=== PATIENT | female | born 1945 | race Caucasian/White ===

== ENCOUNTER → 2022-11-06 12:56 | Outpatient (REF) | payer OTHER, MEDICAID, SELFPAY ==
--- NOTE | 2022-11-06 12:59 | CA_ITS ---
Transthoracic Echocardiogram Patient (Last, First, Middle): Gricelda Castañeda, Gender: Female Date of : 1945 Age: 77 Procedure Date: 11/06/2022 Procedure Type: Transthoracic Echocardiogram Location: OP Height: 167.64 cm Weight: 81.65 kg BSA: 1.91 m2 Heart Rate: 76 bpm BP: 108 / 60 mmHg Shipping Helper: LAILA Referring MD: Geneva TRUJILLO Field Support Technician: Donte Stevens MD Symptoms: ACUTE RT SIDED CHF Study Quality: Fair ECG Rhythm: Atrial Fibrillation Conclusions: - 1. Normal LV systolic function with LVEF of 60 65% 2. Severe biatrial enlargement 3. Possibly severe aortic stenosis, paradoxical low-flow 4. Moderately elevated right ventricular systolic pressure with significantly elevated right atrial pressures 5. Moderate to severe tricuspid regurgitation 6. No gross pericardial effusion Findings Left Ventricle Normal left ventricular size, thickness, and systolic function. The visually estimated ejection fraction is between 60-65%. Spectral Doppler is indicative of a restrictive filling pattern. Right Ventricle The right ventricle was not well visualized. Atria Severe biatrial enlargement. Aortic Valve The aortic valve was not well visualized. There is moderate calcification of the aortic valve. There is severe aortic valve stenosis. The peak aortic gradient is 45 mmHg.The mean gradient is 27 mmHg. The aortic valve area is 0.60 cm2. There is no aortic valve regurgitation. Mitral Valve There is mild anterior and posterior mitral leaflet thickening. There is mild mitral valve regurgitation. There is no mitral valve stenosis. Pulmonic Valve The pulmonic valve is likely normal. There is mild pulmonic valve regurgitation. Tricuspid Valve Normal tricuspid valve structure. There is moderate to severe tricuspid valve regurgitation. Significantly elevated right atrial pressure. Moderate pulmonary hypertension is present. Great Vessels The pulmonary artery was not well visualized. There is mild dilatation of the ascending aorta measuring 4.00 cm. Venous The inferior vena cava is severely dilated and collapses less than 50% with inspiration. Pericardium/Pleural There is no evidence of pericardial effusion. Prior Study Comparison No prior study available for comparison. Measurements 2D Linear Measurements IVSd: 1.15 0.6-0.9/0.6-1.0 cm LVIDd: 3.96 3.9-5.3/4.2-5.9 cm LVIDd Index: 2.07 2.4-3.2/2.2-3.1 cm/m2 LVIDs: 2.73 2.0-3.6 cm LVPWd: 1.22 0.7-1.1 cm LA Diam: 4.40 2.7-3.8/3.0-4.0 cm LAIDs Index: 2.30 1.5-2.3 cm/m2 LV Mass: 199.20 67-162/88-224 g LV Mass Index: 104.29 43-95/49-115 g/m2 LVOT Diam: 1.80 3.0+(-)1.3 cm 2D Systolic Function EF 4C: 64.80 >55% EF 2C: 66.00 >55% EF BiP: 64.10 >55% Mitral Valve MV Pk E: 1.47 MV Decel Time: 118.00 E'Lateral: 12.10 E'Medial: 8.70 E/E' Med: 16.90 E/E' Lat: 12.10 PHT: 34.00 MVA PHT: 6.47 Decel [place]: 12.68 Aortic Valve AoV Pk Joseph: 3.35 AoV Mn Joseph: 2.41 AoV VTI: 0.90 AoV Pk Grad: 45.00 Aov Mn Grad: 27.00 DAQUAN Cont.VTI: 0.60 LVOT LVOT Pk Joseph: 0.84 LVOT Mn Joseph: 0.57 LVOT VTI: 0.21 LVOT Pk Grad: 3.00 LVOT Mn Grad: 2.00 LVOT Diam: 1.80 LVOT Area: 2.54 Diastolic Function MV Pk E: 1.47 E'Medial: 8.70 E/E' Med: 16.90 E' Laterial: 12.10 E/E' Lat: 12.10 Right Ventricle TAPSE (mm): 12.20 Tricuspid Valve TR Pk Joseph: 3.22 TR Pk Grad: 41.00 RA Press: 15.00 RVSP: 56.00 Great Vessels Aorta Sinus of Valsalva: 3.18 2.0-3.[address] [place]: 2.59 1.7-3.4 cm Ao Asc: 4.00 2.1-3.4 cm Updated in Other Vendor System with Status of Final Donte Stevens MD electronically signed on 11/07/2022 11:49:52 AM with status of Final
== END ==
LOC: HO.CARD 12:56
PROVIDERS: PCP Physician Assistant; Visit Provider Physician Assistant
DX: I50.810 Right heart failure, unspecified (principal)
CPT/HCPCS: 93306

== ENCOUNTER → 2022-11-06 12:59 | Outpatient (BNV) | payer OTHER, MEDICAID, SELFPAY | PROVIDERS: PCP Physician Assistant; Visit Provider Internal Medicine Cardiovascular Disease | DX: I35.0 Nonrheumatic aortic (valve) stenosis (principal) | CPT/HCPCS: 93306 ==